=== PATIENT | male | born 1980 | race Caucasian/White ===

== ENCOUNTER 2016-09-06 19:24 | Emergency (ER) | payer SELFPAY ==
[~2016-09-06] VITALS: Ht 182.9 cm; Wt 99.8 kg
[~2016-09-06 19:24] MED LIST: SULF1TAB35 PO
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
[2016-09-06] MEDS ORDERED: meTOprolol TARTRATE 25 MG (LOPRESSOR) TABLET PO ONE (19:45)
[2016-09-06 19:52] VITALS: BP 0/0
--- OUTSIDE RECORDS SUMMARY | 2016-10-08 18:13 | XMS REPORT ---
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 Info Not Available Non Drug Allergy Problems Problem Type Condition Code Onset Dates Condition Status Assessment Cough R05 Active Problem Elevated blood sugar level 790.29 Active Problem IV drug abuse 305.90 Active Problem Elevated blood pressure I10 Active Assessment Costochondral chest pain R07.1 Active Assessment Allergic rhinitis J30.9 Active Problem Essential hypertension 401.9 Active Problem Allergic rhinitis, cause unspecified 477.9 Active Medications Medication Code System Code Instructions Start Date End Date Status Dosage Remeron [facility] [address]-89 15 MG Orally Once a day 1 tablet before bedtime in the evening Paxil [facility] [address]-36 20 MG Orally Once a day 1 tablet in the morning Oxcarbazepine [facility] [address]-11 600 MG Orally not defined Flonase Allergy Relief [facility] [address]-90 50 MCG/ACT Nasally Once a day May 13, 2015 1 spray in each nostril PredniSONE [facility] [address]-04 20 MG Orally Once a day May 13, 2015 May 21, 2015 4 tablets today, 2 tablets daily for 4 days, then 1 tablet daily for 3 days Tesleticia James [facility] [address]-24 100 MG Orally Three times a day May 13, 2015 May 23, 2015 1 capsule as needed Procedures Procedure Coding System Code Date Office Visit, Est Pt., Level 3 CPT-4 16286 May 13, 2015 Vital Signs Date/Time: May 13, 2015 Temperature 98.2 F Weight 275.6 lbs Height 72.5 in BMI 36.86 Index Blood Pressure Diastolic 90 mmHg Blood Pressure Systolic 128 mmHg Cardiac Monitoring Heart Rate 80 bpm Results No Known Results Summary Purpose [employer] Submission
--- OUTSIDE RECORDS SUMMARY | 2016-10-08 18:13 | XMS REPORT ---
Author ADITYA Riggs Organization [employer] Address Unknown Phone Unavailable Care Team Providers Care Rotary Soil Stabilizer Name Role Phone ADITYA ARAMBULA CP Unavailable Allergies, Adverse Reactions, Alerts Substance Reaction Event Type N.K.D.A. Info Not Available Non Drug Allergy Problems Problem Type Condition Code Onset Dates Condition Status Problem URI (upper respiratory infection) J06.9 Active Problem Chest wall pain R07.89 Active Problem HTN (hypertension) I10 Active Assessment HTN (hypertension) I10 Active Assessment Chest wall pain R07.89 Active Problem IV drug user F19.90 Active Assessment URI (upper respiratory infection) J06.9 Active Medications Medication Code System Code Instructions Start Date End Date Status Dosage Tessaljayro Chunes [facility] [address]-55 100 MG Orally Three times a day May 26, 2015 1 capsule as needed Flonase Allergy Relief [facility] [address]-59 50 MCG/ACT Nasally Once a day May 13, 2015 1 spray in each nostril Paxil [facility] [address]-95 20 MG Orally Once a day 1 tablet in the morning Toprol XL [facility] [address]-62 25 MG Orally Once a day May 26, 2015 1 tablet PredniSONE [facility] [address]-63 10 MG Orally 2 times a day May 26, 2015 May 31, 2015 as directed Oxcarbazepine [facility] [address]-37 600 MG Orally not defined Procedures Procedure Coding System Code Date Office Visit, Est Pt., Level 4 CPT-4 42933 May 26, 2015 Vital Signs Date/Time: May 26, 2015 Temperature 97.7 F Weight 277.5 lbs Height 72.5 in BMI 37.11 Index Blood Pressure Diastolic 94 mmHg Blood Pressure Systolic 116 mmHg Cardiac Monitoring Heart Rate 84 bpm Results No Known Results Summary Purpose [employer] Submission
--- OUTSIDE RECORDS SUMMARY | 2016-10-08 18:13 | XMS REPORT | Continuity of Care Document ---
Author Author [facility] Organization [facility] Address Unknown Phone Unavailable Allergies Active Description Code Type Severity Reaction Onset Reported/Identified Relationship to Patient Clinical Status Yes No Known Drug Allergies [id number] Drug Allergy Unknown N/ A 07/24/2010 Medications Problems Date Dx Coded Attending Type Code Diagnosis Diagnosed By 09/06/2016 MINA SILVA APRN Ot F13.10 SEDATIVE, HYPNOTIC OR ANXIOLYTIC ABUSE, 09/06/2016 MINA SILVA APRN Ot F15.20 OTHER STIMULANT DEPENDENCE, UNCOMPLICATE 09/06/2016 MINA SILVA APRN Ot Z53.29 PROC/TRTMT NOT CRD OUT BEC PT DECISION F 09/06/2016 MINA SILVA APRN Ot F99 MENTAL DISORDER, NOT OTHERWISE SPECIFIED 09/06/2016 MINA SILVA APRN Ot Z53.21 PROC/TRTMT NOT CRD OUT D/T PT LV BEF SEE 09/08/2016 DAVID HULL Ot F15.20 OTHER STIMULANT DEPENDENCE, UNCOMPLICATE 09/08/2016 DAVID HULL Ot F17.210 NICOTINE DEPENDENCE, CIGARETTES, UNCOMPL 09/08/2016 DAVID HULL Ot R45.851 SUICIDAL IDEATIONS Procedures Results Test Result Range Complete blood count (CBC) with automated white blood cell (WBC) differential - 09/07/16 12:59 Blood leukocytes automated count (number/volume) 8.5 10*3/ uL 4.3-11.0 Blood erythrocytes automated count (number/volume) 5.31 10*6 /uL 4.35-5.85 Venous blood hemoglobin measurement (mass/volume) 14.9 g/dL 13.3-17.7 Blood hematocrit (volume fraction) 45 % 40-54 Automated erythrocyte mean corpuscular volume 85 [foz_us] 80-99 Automated erythrocyte mean corpuscular hemoglobin (mass per erythrocyte) 28 pg 25-34 Automated erythrocyte mean corpuscular hemoglobin concentration measurement ( mass/volume) 33 g/dL 32-36 Automated erythrocyte distribution width ratio 14.5 % 10.0-14.5 Automated blood platelet count (count/volume) 351 10*3/uL 130-400 Automated blood platelet mean volume measurement 10.1 [foz_ us] 7.4-10.4 Automated blood neutrophils/100 leukocytes 63 % 42-75 Automated blood lymphocytes/100 leukocytes 23 % 12-44 Blood monocytes/100 leukocytes 9 % 0-12 Automated blood eosinophils/100 leukocytes 4 % 0-10 Automated blood basophils/100 leukocytes 1 % 0-10 Blood neutrophils automated count (number/volume) 5.3 10*3 1.8-7.8 Blood lymphocytes automated count (number/volume) 2.0 10*3 1.0-4.0 Blood monocytes automated count (number/volume) 0.7 10*3 0.0-1.0 Automated eosinophil count 0.4 10*3/uL 0.0-0.3 Automated blood basophil count (count/volume) 0.0 10*3/uL 0.0-0.1 Comprehensive metabolic panel - 09/07/16 12:59 Serum or plasma sodium measurement (moles/volume) 142 mmol/ L 135-145 Serum or plasma potassium measurement (moles/volume) 4.0 mmol/L 3.6-5.0 Serum or plasma chloride measurement (moles/volume) 105 mmol /L 98-107 Carbon dioxide 30 mmol/L 21-32 Serum or plasma anion gap determination (moles/volume) 7 mmol/L 5-14 Serum or plasma urea nitrogen measurement (mass/volume) 17 mg/dL 7-18 Serum or plasma creatinine measurement (mass/volume) 1.01 mg /dL 0.60-1.30 Serum or plasma urea nitrogen/creatinine mass ratio 17 NRG Serum or plasma creatinine measurement with calculation of estimated glomerular filtration rate > NRG Serum or plasma glucose measurement (mass/volume) 76 mg/dL 70-105 Serum or plasma calcium measurement (mass/volume) 9.2 mg/dL 8.5-10.1 Serum or plasma total bilirubin measurement (mass/volume) 0.5 mg/dL 0.1-1.0 Serum or plasma alkaline phosphatase measurement (enzymatic activity/volume) 84 U/L 40-136 Serum or plasma aspartate aminotransferase measurement (enzymatic activity/ volume) 30 U/L 5-34 Serum or plasma alanine aminotransferase measurement (enzymatic activity/volume ) 18 U/L 0-55 Serum or plasma protein measurement (mass/volume) 6.8 g/dL 6.4-8.2 Serum or plasma albumin measurement (mass/volume) 4.0 g/dL 3.2-4.5 Serum or plasma salicylates measurement (mass/volume) - 09/07/16 12:59 Serum or plasma salicylates measurement (mass/volume) < mg/ dL 5.0-20.0 Serum or plasma acetaminophen measurement (mass/volume) - 09/07/16 12:59 Serum or plasma acetaminophen measurement (mass/volume) < ug /mL 10-30 Serum or plasma ethanol measurement (mass/volume) - 09/07/16 12:59 Serum or plasma ethanol measurement (mass/volume) < mg/dL <10 Serum or plasma thyrotropin measurement by detection limit <=0.05 miu/l (units/ volume) - 09/07/16 12:59 Serum or plasma thyrotropin measurement by detection limit <=0.05 miu/l (units/ volume) 0.70 u[iU]/mL 0.35-4.94 Complete urinalysis with reflex to culture - 09/07/16 15:00 Urine color determination YELLOW NRG Urine clarity determination SLIGHTLY CLOUDY NRG Urine pH measurement by test strip 6 5- 9 Specific gravity of urine by test strip 1.025 1.016-1.022 Urine protein assay by test strip, semi-quantitative 2+ NEGATIVE Urine glucose detection by automated test strip NEGATIVE NEGATIVE Erythrocytes detection in urine sediment by light microscopy NEGATIVE NEGATIVE Urine ketones detection by automated test strip NEGATIVE NEGATIVE Urine nitrite detection by test strip NEGATIVE NEGATIVE Urine total bilirubin detection by test strip NEGATIVE NEGATIVE Urine urobilinogen measurement by automated test strip (mass/volume) NORMAL NORMAL Urine leukocyte esterase detection by dipstick 1+ NEGATIVE Automated urine sediment erythrocyte count by microscopy (number/high power field) NONE NRG Automated urine sediment leukocyte count by microscopy (number/high power field ) [HPF] NRG Bacteria detection in urine sediment by light microscopy NONE NRG Squamous epithelial cells detection in urine sediment by light microscopy 0-2 NRG Crystals detection in urine sediment by light microscopy NONE NRG Casts detection in urine sediment by light microscopy NONE NRG Mucus detection in urine sediment by light microscopy SMALL NRG Complete urinalysis with reflex to culture NO NRG Urine drug screening test - 09/07/16 15:00 Urine phencyclidine detection by screening method NEGATIVE NEGATIVE Urine benzodiazepines detection by screening method POSITIVE NEGATIVE Urine cocaine detection NEGATIVE NEGATIVE Urine amphetamines detection by screening method POSITIVE NEGATIVE Urine methamphetamine detection by screening method NEGATIVE NEGATIVE Urine cannabinoids detection by screening method POSITIVE NEGATIVE Urine opiates detection by screening method NEGATIVE NEGATIVE Urine barbiturates detection NEGATIVE NEGATIVE Screening urine tricyclic antidepressants detection NEGATIVE NEGATIVE Urine methadone detection by screening method NEGATIVE NEGATIVE Urine oxycodone detection NEGATIVE NEGATIVE Urine propoxyphene detection NEGATIVE NEGATIVE Encounters ACCT No. Visit Date/Time Discharge Status Pt. Type Provider Facility Loc./Unit Complaint [id number] 09/07/2016 12:05:00 2016 18:42:00 DIS Outpatient DAVID HULL [facility] ER PSYCH EVAL [id number] 09/06/2016 20:22:00 2016 20:33:00 DIS Emergency MINA SILVA APRN [facility] ER PSYCH EVAL [id number] 09/06/2016 19:26:00 2016 19:52:00 DIS Emergency MINA SILVA ADMINISTRATIVE OFFICE CLERK [facility] ER PSYCH EVAL [id number] 03/01/2014 11:25:00 2013 23:59:59 CLS Outpatient [id number] 05/07/2015 10:55:00 ACT Outpatient CARMELLA MOYA [facility] QUICK
--- OUTSIDE RECORDS SUMMARY | 2016-10-08 18:13 | XMS REPORT ---
Author ADITYA Riggs [facility] [employer] Address Unknown Phone Unavailable Care Team Providers Care Manager Front Name Role Phone ADITYA ARAMBULA CP Unavailable Allergies No Known Allergies Problems Problem Type Condition Code Onset Dates Condition Status Problem Cellulitis L03.90 Active Problem HTN (hypertension) I10 Active Problem Depression F32.9 Active Problem IV drug user F19.90 Active Problem URI (upper respiratory infection) J06.9 Active Problem Chest wall pain R07.89 Active Medications Medication Code System Code Instructions Start Date End Date Status Dosage Toprol XL [facility] 22306300622 25 MG Orally Once a day 1 tablet Paxil [facility] [address]-38 20 mg Orally Once a day 1 tablet in the morning--MUST HAVE APPOINTMENT FOR FURTHER REFILLS Results No Known Results Summary Purpose [employer] Submission
--- OUTSIDE RECORDS SUMMARY | 2016-10-08 18:13 | XMS REPORT ---
Author Author ROSETTA ORTIZ Organization [employer] Address Unknown Phone Unavailable Care Team Providers Care Environmental Sustainability Manager Name Role Phone ROSETTA ORTIZ CP Unavailable Allergies, Adverse Reactions, Alerts Substance Reaction Event Type N.K.D.A. Info Not Available Non Drug Allergy Problems Problem Type Condition Code Onset Dates Condition Status Assessment Elevated blood pressure I10 Active Problem Elevated blood sugar level 790.29 Active Problem IV drug abuse 305.90 Active Problem Elevated blood pressure I10 Active Assessment Acute bronchitis, unspecified J20.9 Active Assessment Tobacco abuse counseling Z71.6 Active Problem Essential hypertension 401.9 Active Problem Allergic rhinitis, cause unspecified 477.9 Active Medications Medication Code System Code Instructions Start Date End Date Status Dosage Paxil [facility] [address]-88 20 MG Orally Once a day 1 tablet in the morning Oxcarbazepine [facility] [address]-02 600 MG Orally not defined Remeron [facility] [address]-59 15 MG Orally Once a day 1 tablet before bedtime in the evening Procedures Procedure Coding System Code Date MEASURE BLOOD OXYGEN LEVEL CPT-4 84199 May 05, 2015 Office Visit, Est Pt., Level 4 CPT-4 41184 May 05, 2015 NEB/MDI RX INITIAL CPT-4 88023 May 05, 2015 THER/PROPH/DIAG INJ, SC/IM CPT-4 42842 May 05, 2015 SOLUMEDROL (UP TO 125 MG) CPT-4 J2930 May 05, 2015 Vital Signs Date/Time: May 05, 2015 Temperature 98.6 F Weight 279.0 lbs Height 72.5 in Oximetry 97 % Blood Pressure Diastolic 104 mmHg Blood Pressure Systolic 140 mmHg Cardiac Monitoring Heart Rate 72 bpm BMI 37.32 Index Results No Known Results Summary Purpose [employer] Submission
== END 2016-09-06 19:52 | disposition left against medical advice (07) ==
LOC: EDUNIT# 19:24 → ER 19:26
DX: F15.20 Other stimulant dependence, uncomplicated (principal); F13.10 Sedative, hypnotic or anxiolytic abuse, uncomplicated; Z53.29 Procedure and treatment not carried out because of patient's decision for other reasons
CPT/HCPCS: 99283

== ENCOUNTER 2016-09-06 20:21 | Emergency (ER) | payer SELFPAY ==
--- OUTSIDE RECORDS SUMMARY | 2016-10-08 18:22 | XMS REPORT | Continuity of Care Document ---
Author Author [facility] Organization [facility] Address Unknown Phone Unavailable Allergies Active Description Code Type Severity Reaction Onset Reported/Identified Relationship to Patient Clinical Status Yes No Known Drug Allergies [id number] Drug Allergy Unknown N/ A 07/24/2010 Medications [...] Status Pt. Type Provider Facility Loc./Unit Complaint [id number] 09/07/2016 12:05:00 2016 18:42:00 DIS Outpatient DAVID HULL [facility] ER PSYCH EVAL [id number] 09/06/2016 20:22:00 2016 20:33:00 DIS Emergency MINA SILVA APRN [facility] ER PSYCH EVAL [id number] 09/06/2016 19:26:00 2016 19:52:00 DIS Emergency MINA SILVA FINAL CLEANER [facility] ER PSYCH EVAL [id number] 03/01/2014 11:25:00 2013 23:59:59 CLS Outpatient [id number] 05/07/2015 10:55:00 ACT Outpatient CARMELLA MOYA [facility] QUICK
== END 2016-09-06 20:33 | disposition left against medical advice (07) ==
LOC: EDUNIT# 20:21 → ER 20:22
DX: F99 Mental disorder, not otherwise specified (principal); Z53.21 Procedure and treatment not carried out due to patient leaving prior to being seen by health care provider

== ENCOUNTER 2016-09-07 12:03 | Emergency (ER) | payer SELFPAY ==
[~2016-09-07] VITALS: Ht 182.9 cm; Wt 102.1 kg
[2016-09-07 13:06] LABS: BASOPHILS % (AUTO) 1 % (0-10); EOSINOPHILS # (AUTO) 0.4 10^3/uL (0.0-0.3); EOSINOPHILS % (AUTO) 4 % (0-10); LYMPHOCYTES % (AUTO) 23 % (12-44); MEAN CORPUSCULAR HEMOGLOBIN 28 PG (25-34); MEAN CORPUSCULAR HGB CONC 33 G/DL (32-36); MEAN CORPUSCULAR VOLUME 85 FL (80-99); MEAN PLATELET VOLUME 10.1 FL (7.4-10.4); MONOCYTES # (AUTO) 0.7 X 10^3 (0.0-1.0); MONOCYTES % (AUTO) 9 % (0-12); NEUTROPHILS # (AUTO) 5.3 X 10^3 (1.8-7.8); NEUTROPHILS % (AUTO) 63 % (42-75); PLATELET COUNT 351 10^3/uL (130-400); RED BLOOD COUNT 5.31 10^6/uL (4.35-5.85); RED CELL DISTRIBUTION WIDTH 14.5 % (10.0-14.5); WHITE BLOOD COUNT 8.5 10^3/uL (4.3-11.0)
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
[2016-09-07 13:29] LABS: ALANINE AMINOTRANSFERASE 18 U/L (0-55); ASPARTATE AMINO TRANSFERASE 30 U/L (5-34); BILIRUBIN,TOTAL 0.5 MG/DL (0.1-1.0); BLOOD UREA NITROGEN 17 MG/DL (7-18); BUN/CREATININE RATIO 17; CALCIUM 9.2 MG/DL (8.5-10.1); CARBON DIOXIDE 30 MMOL/L (21-32); CREATININE SERUM 1.01 MG/DL (0.60-1.30); GFR ESTIMATED > 60; GLUCOSE 76 MG/DL (70-105); SALICYLATE < 5.0 MG/DL (5.0-20.0); TOTAL PROTEIN 6.8 G/DL (6.4-8.2)
[2016-09-07 13:32] LABS: ALCOHOL < 10 MG/DL (<10)
[2016-09-07 13:46] LABS: ANION GAP 7 MMOL/L (5-14); CHLORIDE 105 MMOL/L (98-107); SODIUM 142 MMOL/L (135-145)
[2016-09-07 13:47] LABS: ACETAMINOPHEN < 10 UG/ML (10-30)
[2016-09-07 15:17] LABS: BILIRUBIN,URINE NEGATIVE (NEGATIVE); KETONES,URINE NEGATIVE (NEGATIVE); LEUKOCYTE ESTERASE ,URINE 1+ (NEGATIVE); NITRITE,URINE NEGATIVE (NEGATIVE); PH,URINE 6 (5-9); PROTEIN,URINE 2+ (NEGATIVE); UROBILINOGEN,URINE NORMAL (NORMAL)
[2016-09-07 15:24] LABS: SQUAMOUS EPITHELIAL CELL,UR 0-2 /HPF; WBC,URINE 0-2 /HPF
[2016-09-07 18:43] VITALS: BP 132/98
--- OUTSIDE RECORDS SUMMARY | 2016-10-08 21:24 | XMS REPORT | Continuity of Care Document ---
Author Author [facility] Organization [facility] Address Unknown Phone Unavailable Allergies Active Description Code Type Severity Reaction Onset Reported/Identified Relationship to Patient Clinical Status Yes No Known Drug Allergies [id number] Drug Allergy Unknown N/ A 07/24/2010 Medications [...] Status Pt. 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
== END 2016-09-07 18:42 ==
LOC: EDUNIT# 12:03 → ER 12:05
DX: R45.851 Suicidal ideations (principal); F15.20 Other stimulant dependence, uncomplicated; F17.210 Nicotine dependence, cigarettes, uncomplicated
CPT/HCPCS: 36415; 80053; 80306; 80320; 80329; 81000; 84443; 85025; 93005

== ENCOUNTER 2017-05-20 20:26 | Emergency (ER) | payer SELFPAY ==
[~2017-05-20] VITALS: Ht 182.9 cm; Wt 113.4 kg
--- OUTSIDE RECORDS SUMMARY | 2017-05-20 20:34 | XMS REPORT | Continuity of Care Document ---
Author Author [facility] Organization [facility] Address Unknown Phone Unavailable Allergies Active Description Code Type Severity Reaction Onset Reported/Identified Relationship to Patient Clinical Status Yes No Known Drug Allergies [id number] Drug Allergy Unknown N/A 07/24/2010 Medications There is no data. Problems Date Dx Coded Attending Type Code Diagnosis Diagnosed By 07/24/2010 Ot 682.3 CELLULITIS OF ARM 09/06/2016 MINA SILVA APRN Ot F13.10 SEDATIVE, HYPNOTIC OR ANXIOLYTIC ABUSE, 09/06/2016 MINA SILVA APRN Ot F15.20 OTHER STIMULANT DEPENDENCE, UNCOMPLICATE 09/06/2016 MINA SILVA APRN Ot Z53.29 PROC/TRTMT NOT CRD OUT BEC PT DECISION F 09/06/2016 MINA SILVA SENIOR LANDSCAPE ARCHITECT Ot F99 MENTAL DISORDER, NOT OTHERWISE SPECIFIED 09/06/2016 MINA SILVA APRN Ot Z53.21 PROC/TRTMT NOT CRD OUT D/T PT LV BEF SEE 09/07/2016 DAVID HULL Ot F15.20 OTHER STIMULANT DEPENDENCE, UNCOMPLICATE 09/07/2016 DAVID HULL Ot F17.210 NICOTINE DEPENDENCE, CIGARETTES, UNCOMPL 09/07/2016 DAVID HULL Ot R45.851 SUICIDAL IDEATIONS 09/08/2016 DAVID HULL Ot F15.20 OTHER STIMULANT DEPENDENCE, UNCOMPLICATE 09/08/2016 DAVID HULL Ot F17.210 NICOTINE DEPENDENCE, CIGARETTES, UNCOMPL 09/08/2016 DAVID HULL Ot R45.851 SUICIDAL IDEATIONS 04/05/2017 JANAY PIKE CUATE Florentin Ot F12.90 CANNABIS USE, UNSPECIFIED, UNCOMPLICATED 04/05/2017 JANAY PIKE CUATE K Ot F15.90 OTHER STIMULANT USE, UNSPECIFIED, UNCOMP 04/05/2017 JANAY PIKE CUATE K Ot F17.210 NICOTINE DEPENDENCE, CIGARETTES, UNCOMPL 04/05/2017 JANAY PIKE CUATE K Ot F32.9 MAJOR DEPRESSIVE DISORDER, SINGLE EPISOD 04/05/2017 JANAY DO CUATE K Ot I10 ESSENTIAL (PRIMARY) HYPERTENSION 04/05/2017 JANAY KAYLA PIKEA K Ot R44.3 HALLUCINATIONS, UNSPECIFIED 04/06/2017 JANAY KAYLA PIKEA K Ot F03.90 UNSPECIFIED DEMENTIA WITHOUT BEHAVIORAL 04/06/2017 JANAY , CUATE K Ot F12.90 CANNABIS USE, UNSPECIFIED, UNCOMPLICATED 04/06/2017 JANAY , CUATE K Ot F15.90 OTHER STIMULANT USE, UNSPECIFIED, UNCOMP 04/06/2017 JANAY , CUATE K Ot F17.210 NICOTINE DEPENDENCE, CIGARETTES, UNCOMPL 04/06/2017 JANAY CUATE PIKE K Ot F20.9 SCHIZOPHRENIA, UNSPECIFIED 04/06/2017 JANAY KAYLA PIKEA K Ot F29 UNSP PSYCHOSIS NOT DUE TO A SUBSTANCE OR 04/06/2017 CUATE GUSTAFSON DO K Ot F32.9 MAJOR DEPRESSIVE DISORDER, SINGLE EPISOD 04/06/2017 JANAY KAYLA PIKEA K Ot I10 ESSENTIAL (PRIMARY) HYPERTENSION 04/11/2017 JANAY , CUATE K Ot F12.90 CANNABIS USE, UNSPECIFIED, UNCOMPLICATED 04/11/2017 JANAY , CUATE K Ot F15.90 OTHER STIMULANT USE, UNSPECIFIED, UNCOMP 04/11/2017 JANAY , CUATE K Ot F17.210 NICOTINE DEPENDENCE, CIGARETTES, UNCOMPL 04/11/2017 JANAY CUATE PIKE K Ot F32.9 MAJOR DEPRESSIVE DISORDER, SINGLE EPISOD 04/11/2017 JANAY KAYLA PIKEA K Ot I10 ESSENTIAL (PRIMARY) HYPERTENSION 04/11/2017 JANAY CUATE PIKE K Ot R44.3 HALLUCINATIONS, UNSPECIFIED Procedures There is no data. Results Test Result Range Complete blood count (CBC) with automated white blood cell (WBC) differential - 09/07/16 12:59 Blood leukocytes automated count (number/volume) 8.5 10*3/uL 4.3-11.0 Blood erythrocytes automated count (number/volume) 5.31 10*6/uL 4.35-5.85 Venous blood hemoglobin measurement (mass/volume) 14.9 [...] Automated blood platelet mean volume measurement 10.1 [foz_us] 7.4-10.4 Automated blood neutrophils/100 leukocytes 63 % [...] Serum or plasma sodium measurement (moles/volume) 142 mmol/L 135-145 Serum or plasma potassium measurement (moles/volume) 4.0 mmol/L 3.6-5.0 Serum or plasma chloride measurement (moles/volume) 105 mmol/L 98-107 Carbon dioxide 30 mmol/L 21-32 Serum or plasma anion gap determination (moles/volume) 7 mmol/L 5-14 Serum or plasma urea nitrogen measurement (mass/volume) 17 mg/dL 7-18 Serum or plasma creatinine measurement (mass/volume) 1.01 mg/dL 0.60-1.30 Serum or plasma urea nitrogen/creatinine mass [...] Serum or plasma salicylates measurement (mass/volume) < mg/dL 5.0-20.0 Serum or plasma acetaminophen measurement (mass/volume) - 09/07/16 12:59 Serum or plasma acetaminophen measurement (mass/volume) < ug/mL 10-30 Serum or plasma ethanol measurement (mass/volume) [...] Urine pH measurement by test strip 6 5-9 Specific gravity of urine by test strip 1.025 1.016- 1.022 Urine protein assay by test strip, semi-quantitative [...] NEGATIVE NEGATIVE Urine propoxyphene detection NEGATIVE NEGATIVE Complete blood count (CBC) with automated white blood cell (WBC) differential - 04/05/17 23:40 Blood leukocytes automated count (number/volume) 15.2 10*3/uL 4.3-11.0 Blood erythrocytes automated count (number/volume) 5.23 10*6/uL 4.35-5.85 Venous blood hemoglobin measurement (mass/volume) 14.9 g/dL 13.3-17.7 Blood hematocrit (volume fraction) 43 % 40-54 Automated erythrocyte mean corpuscular volume 83 [foz_us] 80-99 Automated erythrocyte mean corpuscular hemoglobin (mass per erythrocyte) 29 pg 25-34 Automated erythrocyte mean corpuscular hemoglobin concentration measurement ( mass/volume) 34 g/dL 32-36 Automated erythrocyte distribution width ratio 13.5 % 10.0-14.5 Automated blood platelet count (count/volume) 325 10*3/uL 130-400 Automated blood platelet mean volume measurement 10.4 [foz_us] 7.4-10.4 Automated blood neutrophils/100 leukocytes 70 % 42-75 Automated blood lymphocytes/100 leukocytes 17 % 12-44 Blood monocytes/100 leukocytes 11 % 0-12 Automated blood eosinophils/100 leukocytes 2 % 0-10 Automated blood basophils/100 leukocytes 0 % 0-10 Blood neutrophils automated count (number/volume) 10.7 10*3 1.8-7.8 Blood lymphocytes automated count (number/volume) 2.5 10*3 1.0-4.0 Blood monocytes automated count (number/volume) 1.7 10*3 0.0-1.0 Automated eosinophil count 0.3 10*3/uL 0.0-0.3 Automated blood basophil count (count/volume) 0.0 10*3/uL 0.0-0.1 Comprehensive metabolic panel - 04/05/17 23:40 Serum or plasma sodium measurement (moles/volume) 139 mmol/L 135-145 Serum or plasma potassium measurement (moles/volume) 3.8 mmol/L 3.6-5.0 Serum or plasma chloride measurement (moles/volume) 105 mmol/L 98-107 Carbon dioxide 19 mmol/L 21-32 Serum or plasma anion gap determination (moles/volume) 15 mmol/L 5-14 Serum or plasma urea nitrogen measurement (mass/volume) 18 mg/dL 7-18 Serum or plasma creatinine measurement (mass/volume) 1.07 mg/dL 0.60-1.30 Serum or plasma urea nitrogen/creatinine mass ratio 17 NRG Serum or plasma creatinine measurement with calculation of estimated glomerular filtration rate > NRG Serum or plasma glucose measurement (mass/volume) 102 mg/dL 70-105 Serum or plasma calcium measurement (mass/volume) 9.4 mg/dL 8.5-10.1 Serum or plasma total bilirubin measurement (mass/volume) 0.5 mg/dL 0.1-1.0 Serum or plasma alkaline phosphatase measurement (enzymatic activity/volume) 81 U/L 40-136 Serum or plasma aspartate aminotransferase measurement (enzymatic activity/ volume) 30 U/L 5-34 Serum or plasma alanine aminotransferase measurement (enzymatic activity/volume ) 28 U/L 0-55 Serum or plasma protein measurement (mass/volume) 7.7 g/dL 6.4-8.2 Serum or plasma albumin measurement (mass/volume) 4.5 g/dL 3.2-4.5 Serum or plasma thyrotropin measurement by detection limit <=0.05 miu/l (units/ volume) - 04/05/17 23:40 Serum or plasma thyrotropin measurement by detection limit <=0.05 miu/l (units/ volume) 1.88 u[iU]/mL 0.35-4.94 Serum or plasma salicylates measurement (mass/volume) - 04/05/17 23:40 Serum or plasma salicylates measurement (mass/volume) < mg/dL 5.0-20.0 Serum or plasma acetaminophen measurement (mass/volume) - 04/05/17 23:40 Serum or plasma acetaminophen measurement (mass/volume) < ug/mL 10-30 Serum or plasma ethanol measurement (mass/volume) - 04/05/17 23:40 Serum or plasma ethanol measurement (mass/volume) < mg/dL <10 Encounters ACCT No. Visit Date/Time Discharge Status Pt. Type Provider Facility Loc./Unit Complaint [id number] 04/05/2017 23:29:00 04/06/2017 01:07:00 DIS Emergency CUATE GUSTAFSON DO [facility] ER PSYCHOSIS [id number] 04/05/2017 22:24:00 04/05/2017 23:06:00 DIS Emergency JANAY CUATE PIKE [facility] ER HALLUCINATIONS [id number] 09/07/2016 12:05:00 09/07/2016 18:42:00 DIS Emergency DAVID HULL [facility] ER PSYCH EVAL [id number] 09/06/2016 20:22:00 09/06/2016 20:33:00 DIS Emergency MINA SILVA SENIOR LANDSCAPE ARCHITECT [facility] ER PSYCH EVAL [id number] 09/06/2016 19:26:00 09/06/2016 19:52:00 DIS Emergency MINA SILVA SENIOR LANDSCAPE ARCHITECT [facility] ER PSYCH EVAL [id number] 05/07/2015 10:55:00 05/07/2015 23:59:59 CLS Outpatient VAN CARMELLA WILKINS [facility] QUICK [id number] 03/01/2014 11:25:00 03/01/2014 23:59:59 CLS Outpatient MARAH JANET Laura SENIOR LANDSCAPE ARCHITECT [facility] QUICK POSSIBLE SPIDER BITE [id number] 05/17/2017 02:50:00 Document Registration [id number] 05/17/2017 02:50:00 Document Registration [id number] 05/17/2017 02:50:00 Document Registration [id number] 05/17/2017 02:50:00 Document Registration [id number] 07/24/2010 10:50:00 Document Registration
[2017-05-20] MEDS ORDERED: diphenhydrAMINE 50 MG/ML INJ (BENADRYL) IM ONE (20:45)
[2017-05-20] MEDS ORDERED: LORazepam INJ 2 MG/ML (ATIVAN) VIAL IM ONE ×2 (20:45)
[2017-05-20] MEDS ORDERED: HALOPERIDOL 5 MG/ML (HALDOL) AMP IM ONE (20:45)
[2017-05-20] MEDS ORDERED: ZIPRASIDONE 20 MG INJ (GEODON) VIAL IM ONE ×2 (20:58→21:00)
[2017-05-20 21:21] VITALS: BP 151/98
[2017-05-20 21:36] LABS: BASOPHILS % (AUTO) 0 % (0-10); EOSINOPHILS # (AUTO) 0.3 10^3/uL (0.0-0.3); EOSINOPHILS % (AUTO) 3 % (0-10); LYMPHOCYTES # (AUTO) 1.7 X 10^3 (1.0-4.0); LYMPHOCYTES % (AUTO) 18 % (12-44); MEAN CORPUSCULAR HEMOGLOBIN 28 PG (25-34); MEAN CORPUSCULAR HGB CONC 34 G/DL (32-36); MEAN CORPUSCULAR VOLUME 82 FL (80-99); MEAN PLATELET VOLUME 10.4 FL (7.4-10.4); MONOCYTES # (AUTO) 0.9 X 10^3 (0.0-1.0); MONOCYTES % (AUTO) 9 % (0-12); NEUTROPHILS # (AUTO) 6.3 X 10^3 (1.8-7.8); NEUTROPHILS % (AUTO) 69 % (42-75); PLATELET COUNT 310 10^3/uL (130-400); RED BLOOD COUNT 4.74 10^6/uL (4.35-5.85); RED CELL DISTRIBUTION WIDTH 13.3 % (10.0-14.5); WHITE BLOOD COUNT 9.1 10^3/uL (4.3-11.0)
[2017-05-20 21:44] LABS: BILIRUBIN,URINE NEGATIVE (NEGATIVE); KETONES,URINE NEGATIVE (NEGATIVE); LEUKOCYTE ESTERASE ,URINE 1+ (NEGATIVE); NITRITE,URINE NEGATIVE (NEGATIVE); PH,URINE 6 (5-9); PROTEIN,URINE 1+ (NEGATIVE); UROBILINOGEN,URINE NORMAL (NORMAL)
[2017-05-20 21:45] VITALS: BP 157/115
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
[2017-05-20 21:54] LABS: SQUAMOUS EPITHELIAL CELL,UR 0-2 /HPF
[2017-05-20 22:00] LABS: ALANINE AMINOTRANSFERASE 17 U/L (0-55); ALBUMIN 4.1 GM/DL (3.2-4.5); ALCOHOL < 10 MG/DL (<10); ANION GAP 13 MMOL/L (5-14); ASPARTATE AMINO TRANSFERASE 27 U/L (5-34); BILIRUBIN,TOTAL 0.4 MG/DL (0.1-1.0); BLOOD UREA NITROGEN 15 MG/DL (7-18); BUN/CREATININE RATIO 13; CALCIUM 9.4 MG/DL (8.5-10.1); CARBON DIOXIDE 20 MMOL/L (21-32); CHLORIDE 109 MMOL/L (98-107); GFR ESTIMATED > 60; GLUCOSE 114 MG/DL (70-105); POTASSIUM 2.9 MMOL/L (3.6-5.0); SALICYLATE < 5.0 MG/DL (5.0-20.0); SODIUM 142 MMOL/L (135-145); TOTAL PROTEIN 7.1 GM/DL (6.4-8.2)
[2017-05-20 22:03] LABS: ACETAMINOPHEN < 10 UG/ML (10-30)
[2017-05-20 22:11] VITALS: BP 146/83
[2017-05-20 22:41] VITALS: BP 142/78
[2017-05-20 23:00] VITALS: BP 125/76
[2017-05-20 23:30] VITALS: BP 123/70
[2017-05-21] VITALS: BP 116/73
[2017-05-21 00:30] VITALS: BP 114/70
[2017-05-21 01:00] VITALS: BP 125/80
[2017-05-21 01:30] VITALS: BP 109/86
[2017-05-21 02:00] VITALS: BP 125/90
[2017-05-21 02:25] VITALS: BP 125/90
== END 2017-05-21 02:25 | disposition home or self-care (01) ==
LOC: EDUNIT# 20:26 → ER 20:29
DX: F15.259 Other stimulant dependence with stimulant-induced psychotic disorder, unspecified (principal); F41.9 Anxiety disorder, unspecified; F31.9 Bipolar disorder, unspecified; F20.9 Schizophrenia, unspecified; I10 Essential (primary) hypertension; F13.90 Sedative, hypnotic, or anxiolytic use, unspecified, uncomplicated; F17.210 Nicotine dependence, cigarettes, uncomplicated
CPT/HCPCS: 36415; 80053; 80306; 80320; 80329; 81000; 84443; 85025; 93005; 93041

== ENCOUNTER 2017-11-12 20:40 | Emergency (ER) | payer SELFPAY ==
[2017-11-12] MEDS ORDERED: NS IV 1000 ML 1,000 ML IV SCH (20:51)
[2017-11-12] MEDS ORDERED: LACTATED RINGERS 1,000 ML IV ONE (20:51)
[2017-11-12 21:05] LABS: BASOPHILS % (AUTO) 0 % (0-10); EOSINOPHILS # (AUTO) 0.2 10^3/uL (0.0-0.3); EOSINOPHILS % (AUTO) 2 % (0-10); HEMATOCRIT 42 % (40-54); HEMOGLOBIN 15.4 G/DL (13.3-17.7); LYMPHOCYTES # (AUTO) 1.8 X 10^3 (1.0-4.0); LYMPHOCYTES % (AUTO) 15 % (12-44); MEAN CORPUSCULAR HEMOGLOBIN 30 PG (25-34); MEAN CORPUSCULAR HGB CONC 37 G/DL (32-36); MEAN CORPUSCULAR VOLUME 81 FL (80-99); MEAN PLATELET VOLUME 11.2 FL (7.4-10.4); MONOCYTES # (AUTO) 1.3 X 10^3 (0.0-1.0); MONOCYTES % (AUTO) 11 % (0-12); NEUTROPHILS # (AUTO) 8.8 X 10^3 (1.8-7.8); NEUTROPHILS % (AUTO) 72 % (42-75); PLATELET COUNT 326 10^3/uL (130-400); RED BLOOD COUNT 5.16 10^6/uL (4.35-5.85); RED CELL DISTRIBUTION WIDTH 13.4 % (10.0-14.5); WHITE BLOOD COUNT 12.2 10^3/uL (4.3-11.0)
[2017-11-12 21:29] LABS: ALANINE AMINOTRANSFERASE 31 U/L (0-55); ALBUMIN 4.8 GM/DL (3.2-4.5); ALKALINE PHOSPHATASE 90 U/L (40-136); BILIRUBIN,TOTAL 0.9 MG/DL (0.1-1.0); BUN/CREATININE RATIO 10; CALCIUM 10.3 MG/DL (8.5-10.1); CARBON DIOXIDE 15 MMOL/L (21-32); CHLORIDE 111 MMOL/L (98-107); CREATININE SERUM 2.13 MG/DL (0.60-1.30); GFR ESTIMATED 35; GLUCOSE 124 MG/DL (70-105); POTASSIUM 3.6 MMOL/L (3.6-5.0); SALICYLATE < 5.0 MG/DL (5.0-20.0); SODIUM 145 MMOL/L (135-145); TOTAL PROTEIN 8.1 GM/DL (6.4-8.2)
[2017-11-12 21:31] LABS: ACETAMINOPHEN < 10 UG/ML (10-30)
--- OUTSIDE RECORDS SUMMARY | 2017-11-12 21:31 | XMS REPORT ---
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 Active 293752753 Problem Chest wall pain R07.89 Active 140570903 Problem HTN (hypertension) I10 Active 72965786 Problem Depression F32.9 Active 55699859 Problem Cellulitis L03.90 Active 404019423 ALLERGIES Substance Reaction Event Type Date Status Sulfamethoxazole-TMP DS Unknown Drug Allergy Dec, Active ENCOUNTERS Encounter Location Date Diagnosis [facility] [address] [address] Feb, Poison leydi L23.7 [facility] [address] [address] Dec, Depression F32.9 ; Methamphetamine dependence, 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 ; HTN (hypertension) I10 and Cellulitis L03.90 [facility] [id number] [place] [phone] Dec, [facility] [address] [address] Dec, Abscess of arm, left L02.414 [facility] [address] [place] [address] Dec, [facility] [address] [address] Dec, [facility] [id number] [address] October, [facility] [id number] [place] [address] October, [facility] [id number] [place] [address] Sep, HTN (hypertension) I10 [facility] [id number] [place] [address] Sep, [facility] [address] [place] [address] Sep, Methamphetamine addiction F15.20 [facility] [id number] [place] [address] Sep, IV drug user F19.90 ; Depression F32.9 ; Methamphetamine addiction F15.20 and Suicide ideation R45.851 [facility] [id number] [place] [address] Sep, Suicidal ideation R45.851 ; IV drug user F19.90 ; Methamphetamine addiction F15.20 and Methamphetamine dependence, 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 [facility] [id number] [place] [address] Aug, Cellulitis L03.90 ; IV drug user F19.90 and HTN ( hypertension) I10 [facility] [id number] [place] [address] Aug, Cellulitis L03.90 [facility] [id number] [place] [address] Aug, IV drug user F19.90 ; Cellulitis L03.90 and HTN ( hypertension) I10 [facility] [id number] [place] [address] Dec, [facility] [id number] [place] [address] Nov, [place] [id number] [place] [address] Jul, HTN (hypertension) I10 ; Depression F32.9 and Cellulitis L03.90 [place] [id number] [place] [address] May, URI (upper respiratory infection) J06.9 ; HTN (hypertension ) I10 and Chest wall pain R07.89 [place] [address] [address] May, Costochondral chest pain R07.1 ; Allergic rhinitis J30.9 and Cough R[address] [address] May, Acute bronchitis, unspecified J20.9 ; Tobacco abuse counseling Z71.6 and Elevated blood pressure I10 [place] [address] [address] Jan, [place] [address] [address] Jan, Elevated blood sugar level 790.29 [place] [address] [address] Jan, IV drug abuse 305.90 ; Essential hypertension 401.9 and Anxiety 300.00 [place] [address] [address] Sep, [place] [address] [address] Sep, [place] [address] [address] Mar, [place] [address] [address] Mar, [place] [id number] [place] [address] Jul, IMMUNIZATIONS No Known Immunizations SOCIAL HISTORY Never Assessed REASON FOR VISIT Depression/drug screen. Pt states that he has been off meth for 2 weeks. Needing some anti-depressants to help with transition. Florentin Price, RMA, Pt had just urinated before coming to [facility] so is drinking fluids now. PLAN OF CARE Activity Details Follow Up 4 Weeks Reason:depression, drug screen VITAL SIGNS Height 72.5 in 2016-12-21 Weight 246 lbs 2016-12-21 Temperature 98.4 degrees Fahrenheit 2016-12-21 Heart Rate 88 bpm 2016-12-21 Respiratory Rate 16 2016-12-21 BMI 32.90 kg/m2 2016-12-21 Blood pressure systolic 132 mmHg 2016-12-21 Blood pressure diastolic 84 mmHg 2016-12-21 MEDICATIONS Medication Instructions Dosage Frequency Start Date End Date Duration Status Bactrim DS 800-160 MG Orally Twice a day, voucher 1 tablet Dec, Dec, 10 day(s) Active Paxil 20 mg Orally Once a day 1 tablet in the morning 24h Dec, 30 day(s) Active Toprol XL 50 MG Orally Once a day 1 tablet 24h 30 days Active RESULTS No Results PROCEDURES Procedure Date Ordered Result Body Site DRUG TEST PRSMV DIR OPT OBS December 21, 2016 INSTRUCTIONS MEDICATIONS ADMINISTERED No Known Medications MEDICAL (GENERAL) HISTORY Type Description Date Medical History hypertension Medical History drug abuse--IVDU meth--last used 08/24/2016. Completed 28 day rehab at [facility] on 12-30-14 Surgical History orthopedic surgery-Right ankle fx with hardware 1993 Surgical History hypospadias repair Hospitalization History Surgery
--- OUTSIDE RECORDS SUMMARY | 2017-11-12 21:32 | XMS REPORT | Continuity of Care Document ---
Author Author [facility] Organization [facility] Address Unknown Phone Unavailable Allergies Active Description Code Type Severity Reaction Onset Reported/Identified Relationship to Patient Clinical Status Yes No Known Drug Allergies [id number] Drug Allergy Unknown N/A 07/24/2010 Medications There is no data. Problems Date Dx Coded Attending Type Code Diagnosis Diagnosed By 07/24/2010 Ot 682.3 CELLULITIS OF ARM 03/18/2013 SANTO JULIAN APRN 477.9 RHINITIS 09/06/2016 MINA SILVA APRN Ot F13.10 SEDATIVE, [...] DAVID HULL Ot R45.851 SUICIDAL IDEATIONS 04/05/2017 CUATE GUSTAFSON DO Ot F12.90 CANNABIS USE, UNSPECIFIED, UNCOMPLICATED 04/05/2017 CUATE GUSTAFSON DO Ot F15.90 OTHER STIMULANT USE, UNSPECIFIED, UNCOMP 04/05/2017 JANAY DO, CUATE K Ot F17.210 NICOTINE DEPENDENCE, CIGARETTES, UNCOMPL 04/05/2017 JANAY DO, CUATE K Ot F32.9 MAJOR DEPRESSIVE DISORDER, SINGLE EPISOD 04/05/2017 JANAY DO, CUATE K Ot I10 ESSENTIAL (PRIMARY) HYPERTENSION 04/05/2017 JANAY DO, CUATE K Ot R44.3 HALLUCINATIONS, UNSPECIFIED 04/06/2017 JANAY DO, CUATE K Ot F03.90 UNSPECIFIED DEMENTIA WITHOUT BEHAVIORAL 04/06/2017 JANAY DO, CUATE K Ot F12.90 CANNABIS USE, UNSPECIFIED, UNCOMPLICATED 04/06/2017 JANAY DO, CUATE K Ot F15.90 OTHER STIMULANT USE, UNSPECIFIED, UNCOMP 04/06/2017 JANAY DO, CUATE K Ot F17.210 NICOTINE DEPENDENCE, CIGARETTES, UNCOMPL 04/06/2017 JANAY DO, CUATE K Ot F20.9 SCHIZOPHRENIA, UNSPECIFIED 04/06/2017 JANAY DO, CUATE K Ot F29 UNSP PSYCHOSIS NOT DUE TO A SUBSTANCE OR 04/06/2017 JANAY DO, CUATE K Ot F32.9 MAJOR DEPRESSIVE DISORDER, SINGLE EPISOD 04/06/2017 JANAY DO, CUATE K Ot I10 ESSENTIAL (PRIMARY) HYPERTENSION 04/11/2017 JANAY DO, CUATE K Ot F12.90 CANNABIS USE, UNSPECIFIED, UNCOMPLICATED 04/11/2017 JANAY DO, CUATE K Ot F15.90 OTHER STIMULANT USE, UNSPECIFIED, UNCOMP 04/11/2017 JANAY DO, CUATE K Ot F17.210 NICOTINE DEPENDENCE, CIGARETTES, UNCOMPL 04/11/2017 JANAY DO, CUATE K Ot F32.9 MAJOR DEPRESSIVE DISORDER, SINGLE EPISOD 04/11/2017 JANAY DO, CUATE K Ot I10 ESSENTIAL (PRIMARY) HYPERTENSION 04/11/2017 JANAY DO, CUATE K Ot R44.3 HALLUCINATIONS, UNSPECIFIED 05/21/2017 JANAY DO, CUATE K Ot F13.90 SEDATIVE, HYPNOTIC, OR ANXIOLYTIC USE, U 05/21/2017 JANAY DO, CUATE K Ot F15.259 OTH STIMULANT DEPEND W STIM-INDUCE PSYCH 05/21/2017 JANAY DO, CUATE K Ot F17.210 NICOTINE DEPENDENCE, CIGARETTES, UNCOMPL 05/21/2017 JANAY DO, CUATE K Ot F20.9 SCHIZOPHRENIA, UNSPECIFIED 05/21/2017 CUATE GUSTAFSON DO Ot F22 DELUSIONAL DISORDERS 05/21/2017 CUATE GUSTAFSON DO Ot F31.9 BIPOLAR DISORDER, UNSPECIFIED 05/21/2017 CUATE GUSTAFSON DO Ot F41.9 ANXIETY DISORDER, UNSPECIFIED 05/21/2017 CUATE GUSTAFSON DO Ot I10 ESSENTIAL (PRIMARY) HYPERTENSION Procedures There is no data. Results Test Result Range Aerobic Bacterial Culture - 08/17/16 00:00 Aerobic Bacterial Culture Note Complete blood count (CBC) with automated white [...] plasma ethanol measurement (mass/volume) < mg/dL <10 Complete blood count (CBC) with automated white blood cell (WBC) differential - 05/20/17 21:27 Blood leukocytes automated count (number/volume) 9.1 10*3/uL 4.3-11.0 Blood erythrocytes automated count (number/volume) 4.74 10*6/uL 4.35-5.85 Venous blood hemoglobin measurement (mass/volume) 13.4 g/dL 13.3-17.7 Blood hematocrit (volume fraction) 39 % 40-54 Automated erythrocyte mean corpuscular volume 82 [foz_us] 80-99 Automated erythrocyte mean corpuscular hemoglobin (mass per erythrocyte) 28 pg 25-34 Automated erythrocyte mean corpuscular hemoglobin concentration measurement ( mass/volume) 34 g/dL 32-36 Automated erythrocyte distribution width ratio 13.3 % 10.0-14.5 Automated blood platelet count (count/volume) 310 10*3/uL 130-400 Automated blood platelet mean volume measurement 10.4 [foz_us] 7.4-10.4 Automated blood neutrophils/100 leukocytes 69 % 42-75 Automated blood lymphocytes/100 leukocytes 18 % 12-44 Blood monocytes/100 leukocytes 9 % 0-12 Automated blood eosinophils/100 leukocytes 3 % 0-10 Automated blood basophils/100 leukocytes 0 % 0-10 Blood neutrophils automated count (number/volume) 6.3 10*3 1.8-7.8 Blood lymphocytes automated count (number/volume) 1.7 10*3 1.0-4.0 Blood monocytes automated count (number/volume) 0.9 10*3 0.0-1.0 Automated eosinophil count 0.3 10*3/uL 0.0-0.3 Automated blood basophil count (count/volume) 0.0 10*3/uL 0.0-0.1 Comprehensive metabolic panel - 05/20/17 21:27 Serum or plasma sodium measurement (moles/volume) 142 mmol/L 135-145 Serum or plasma potassium measurement (moles/volume) 2.9 mmol/L 3.6-5.0 Serum or plasma chloride measurement (moles/volume) 109 mmol/L 98-107 Carbon dioxide 20 mmol/L 21-32 Serum or plasma anion gap determination (moles/volume) 13 mmol/L 5-14 Serum or plasma urea nitrogen measurement (mass/volume) 15 mg/dL 7-18 Serum or plasma creatinine measurement (mass/volume) 1.20 mg/dL 0.60-1.30 Serum or plasma urea nitrogen/creatinine mass ratio 13 NRG Serum or plasma creatinine measurement with calculation of estimated glomerular filtration rate > NRG Serum or plasma glucose measurement (mass/volume) 114 mg/dL 70-105 Serum or plasma calcium measurement (mass/volume) 9.4 mg/dL 8.5-10.1 Serum or plasma total bilirubin measurement (mass/volume) 0.4 mg/dL 0.1-1.0 Serum or plasma alkaline phosphatase measurement (enzymatic activity/volume) 80 U/L 40-136 Serum or plasma aspartate aminotransferase measurement (enzymatic activity/ volume) 27 U/L 5-34 Serum or plasma alanine aminotransferase measurement (enzymatic activity/volume ) 17 U/L 0-55 Serum or plasma protein measurement (mass/volume) 7.1 g/dL 6.4-8.2 Serum or plasma albumin measurement (mass/volume) 4.1 g/dL 3.2-4.5 Serum or plasma thyrotropin measurement by detection limit <=0.05 miu/l (units/ volume) - 05/20/17 21:27 Serum or plasma thyrotropin measurement by detection limit <=0.05 miu/l (units/ volume) 1.71 u[iU]/mL 0.35-4.94 Serum or plasma salicylates measurement (mass/volume) - 05/20/17 21:27 Serum or plasma salicylates measurement (mass/volume) < mg/dL 5.0-20.0 Serum or plasma acetaminophen measurement (mass/volume) - 05/20/17 21:27 Serum or plasma acetaminophen measurement (mass/volume) < ug/mL 10-30 Serum or plasma ethanol measurement (mass/volume) - 05/20/17 21:27 Serum or plasma ethanol measurement (mass/volume) < mg/dL <10 Complete urinalysis with reflex to culture - 05/20/17 21:32 Urine color determination YELLOW NRG Urine clarity determination CLEAR NRG Urine pH measurement by test strip 6 5-9 Specific gravity of urine by test strip 1.025 1.016- 1.022 Urine protein assay by test strip, semi-quantitative 1+ NEGATIVE Urine glucose detection by automated test strip NEGATIVE NEGATIVE Erythrocytes detection in urine sediment by light microscopy 1+ NEGATIVE Urine ketones detection by automated test strip NEGATIVE NEGATIVE Urine nitrite detection by test strip NEGATIVE NEGATIVE Urine total bilirubin detection by test strip NEGATIVE NEGATIVE Urine urobilinogen measurement by automated test strip (mass/volume) NORMAL NORMAL Urine leukocyte esterase detection by dipstick 1+ NEGATIVE Automated urine sediment erythrocyte count by microscopy (number/high power field) [HPF] NRG Automated urine sediment leukocyte count by microscopy (number/high power field ) [HPF] NRG Bacteria detection in urine sediment by light microscopy TRACE NRG Squamous epithelial cells detection in urine sediment by light microscopy 0-2 NRG Crystals detection in urine sediment by light microscopy NONE NRG Casts detection in urine sediment by light microscopy NONE NRG Mucus detection in urine sediment by light microscopy NEGATIVE NRG Complete urinalysis with reflex to culture NO NRG Urine drug screening test - 05/20/17 21:32 Urine phencyclidine detection by screening method NEGATIVE NEGATIVE Urine benzodiazepines detection by screening method NEGATIVE NEGATIVE Urine cocaine detection NEGATIVE NEGATIVE Urine [...] Status Pt. Type Provider Facility Loc./Unit Complaint [id number] 05/20/2017 20:29:00 05/21/2017 02:25:00 DIS Emergency JANAY DOCUATE [facility] ER OVERDOSE [id number] 04/05/2017 23:29:00 04/06/2017 01:07:00 DIS Emergency JANAY DOCUAET K [facility] ER PSYCHOSIS [id number] 04/05/2017 22:24:00 04/05/2017 23:06:00 DIS Emergency JANAY DO, CUATE K [facility] ER HALLUCINATIONS [id number] 09/07/2016 12:05:00 09/07/2016 18:42:00 DIS Emergency DAVID HULL [facility] ER PSYCH EVAL [id number] 09/06/2016 20:22:00 09/06/2016 20:33:00 DIS Emergency MINA SILVA COMPUTER INSTALLATION ENGINEER [facility] ER PSYCH EVAL [id number] 09/06/2016 19:26:00 09/06/2016 19:52:00 DIS Emergency MINA SILVA COMPUTER INSTALLATION ENGINEER [facility] ER PSYCH EVAL [id number] 05/07/2015 10:55:00 05/07/2015 23:59:59 CLS Outpatient VAN CARMELLA WILKINS NOTE SPECIALIST [facility] QUICK [id number] 03/01/2014 11:25:00 03/01/2014 23:59:59 CLS Outpatient LANEINGSJANET COMPUTER INSTALLATION ENGINEER [facility] QUICK POSSIBLE SPIDER BITE [id number] 05/17/2017 02:50:00 Document Registration [id number] 05/17/2017 02:50:00 Document Registration [id number] 05/17/2017 02:50:00 Document Registration [id number] 05/17/2017 02:50:00 Document Registration [id number] 07/24/2010 10:50:00 Document Registration [id number] 02/24/2017 14:35:00 02/24/2017 23:59:59 CLS Outpatient ARAMBULA ADITYA [facility] [id number] 08/20/2016 13:05:00 Document Registration [id number] 03/18/2013 13:00:00 03/18/2013 23:59:59 CLS Outpatient SANTO JULIAN APRN
--- OUTSIDE RECORDS SUMMARY | 2017-11-12 21:32 | XMS REPORT ---
Author Author SANTO JULIAN Organization [facility] Address [address] [place] [address] Care Team Providers Care Business Consultant Name Role Phone SANTO JULIAN Unavailable PROBLEMS Type Condition ICD9-CM Code FRG13-KB Code Onset Dates Condition Status SNOMED Code Problem URI (upper respiratory infection) J06.9 Active 11080125 Problem IV drug user F19.90 Active 757533613 Problem Methamphetamine addiction F15.20 Active 127810581 Problem Methamphetamine dependence, 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 Active 240115846 Problem Chest wall pain R07.89 Active 379745331 Problem HTN (hypertension) I10 Active 59670848 Problem Depression F32.9 Active 31596731 Problem Cellulitis L03.90 Active 457368483 ALLERGIES Substance Reaction Event Type Date Status Sulfamethoxazole-TMP DS Unknown Drug Allergy Feb, Active ENCOUNTERS Encounter Location Date Diagnosis [facility] [id number] [place] [phone] Feb, Poison leydi L23.7 [facility] [address] [place] [id number] [place] [phone] Dec, Depression F32.9 ; Methamphetamine dependence, 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 ; HTN (hypertension) I10 and Cellulitis L03.90 [facility] [id number] [place] [phone] Dec, [facility] [address] [phone] Dec, Abscess of arm, left L02.414 [facility] [address] [place] [address] Dec, [facility] [id number] [place] [phone] Dec, [facility] [address] [address] October, [facility] [id number] [place] [phone] October, [facility] [id number] [place] [phone] Sep, HTN (hypertension) I10 [facility] [id number] [place] [phone] Sep, [facility] [address] [place] [address] Sep, Methamphetamine addiction F15.20 [place] [id number] [place] [phone] Sep, IV drug user F19.90 ; Depression F32.9 ; Methamphetamine addiction F15.20 and Suicide ideation R45.851 [place] [id number] [place] [address] Sep, Suicidal ideation R45.851 ; IV drug user F19.90 ; Methamphetamine addiction F15.20 and Methamphetamine dependence, 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 [facility] [id number] [place] [address] Aug, Cellulitis L03.90 ; IV drug user F19.90 and HTN ( hypertension) I10 [place] [address] [address] Aug, Cellulitis L03.90 [facility] [id number] [place] [address] Aug, IV drug user F19.90 ; Cellulitis L03.90 and HTN ( hypertension) I10 [facility] [id number] [place] [phone] Dec, [facility] [id number] [place] [phone] Nov, [facility] [address] [address] 29 Jul, 2015 HTN (hypertension) I10 ; Depression F32.9 and Cellulitis L03.90 [place] [address] [address] May, URI (upper respiratory infection) J06.9 ; HTN (hypertension ) I10 and Chest wall pain R07.89 [place] [address] [address] May, Costochondral chest pain R07.1 ; Allergic rhinitis J30.9 and Cough R05 [address] [address] May, Acute bronchitis, unspecified J20.9 ; Tobacco abuse counseling Z71.6 and Elevated blood pressure I10 [address] [address] Jan, [place] [address] [address] Jan, Elevated blood sugar level 790.[address] [address] Jan, IV drug abuse 305.90 ; Essential hypertension 401.9 and Anxiety 300.[address] [address] 14 Sep, 2014 [place] [address] [address] Sep, [place] [address] [address] Mar, [place] [address] [address] Mar, [place] [address] [address] 29 Jul, 2011 IMMUNIZATIONS Vaccine Route Administration Date Status SOLUMEDROL (UP TO 125 MG) IM Intramuscular Feb 24, 2017 Administered SOCIAL HISTORY Never Assessed REASON FOR VISIT posion leydi on back of legs has doubled in size in the last 24hr [facility] PLAN OF CARE VITAL SIGNS Height 72.5 in 2017-02-24 Weight 251.2 lbs 2017-02-24 Temperature 98.4 degrees Fahrenheit 2017-02-24 Heart Rate 92 bpm 2017-02-24 Respiratory Rate 18 2017-02-24 BMI 33.60 kg/m2 2017-02-24 Blood pressure systolic 140 mmHg 2017-02-24 Blood pressure diastolic 92 mmHg 2017-02-24 MEDICATIONS Medication Instructions Dosage Frequency Start Date End Date Duration Status PredniSONE 20 mg Orally Once a day 2 tablets 24h Feb, Feb, 05 days Active RESULTS No Results PROCEDURES Procedure Date Ordered Result Body Site SOLUMEDROL (UP TO 125 MG) Feb 24, 2017 THER/PROPH/DIAG INJ, SC/IM Feb 24, 2017 INSTRUCTIONS MEDICATIONS ADMINISTERED No Known Medications MEDICAL (GENERAL) HISTORY Type Description Date Medical History hypertension Medical History drug abuse--IVDU meth--last used 08/24/2016. Completed 28 day rehab at [facility] on 12-30-14 Surgical History orthopedic surgery-Right ankle fx with hardware 1993 Surgical History hypospadias repair Hospitalization History Surgery
== END 2017-11-12 20:55 | disposition left against medical advice (07) ==
LOC: EDUNIT# 20:40 → ER 20:41
DX: Z03.89 Encounter for observation for other suspected diseases and conditions ruled out (principal)
CPT/HCPCS: 36415; 80053; 80320; 80329; 85025

== ENCOUNTER 2017-12-23 09:32 | Inpatient (IN) | payer SELFPAY ==
[~2017-12-23] VITALS: Ht 182.9 cm; Wt 113.4 kg
[2017-12-23] MEDS ORDERED: LACTATED RINGERS 1,000 ML IV ONE ×2 (09:43→09:45)
[2017-12-23] MEDS ORDERED: LORazepam INJ 2 MG/ML (ATIVAN) VIAL IVP ONE ×2 (09:45→11:15)
[2017-12-23] MEDS ORDERED: KETOROLAC 30 MG/ML VIAL IVP ONE (09:45)
--- OUTSIDE RECORDS SUMMARY | 2017-12-23 09:46 | XMS REPORT | Continuity of Care Document ---
Author Author [facility] Organization [facility] Address Unknown Phone Unavailable Allergies Active Description Code Type Severity Reaction Onset Reported/Identified Relationship to Patient Clinical Status Yes No Known Drug Allergies [id number] Drug Allergy Unknown N/A 07/24/2010 Medications There [...] GUSTAFSON DO Ot I10 ESSENTIAL (PRIMARY) HYPERTENSION 11/12/2017 OSMAR THOMASP Ot Z03.89 ENCNTR FOR OBS FOR OTH SUSPECTED DISEASE 11/14/2017 OSMAR THOMAS Ot Z03.89 ENCNTR FOR OBS FOR OTH SUSPECTED DISEASE Procedures There is no data. Results Test [...] automated white blood cell (WBC) differential - 11/12/17 20:50 Blood leukocytes automated count (number/volume) 12.2 10*3/uL 4.3-11.0 Blood erythrocytes automated count (number/volume) 5.16 10*6/uL 4.35-5.85 Venous blood hemoglobin measurement (mass/volume) 15.4 g/dL 13.3-17.7 Blood hematocrit (volume fraction) 42 % 40-54 Automated erythrocyte mean corpuscular volume 81 [foz_us] 80-99 Automated erythrocyte mean corpuscular hemoglobin (mass per erythrocyte) 30 pg 25-34 Automated erythrocyte mean corpuscular hemoglobin concentration measurement ( mass/volume) 37 g/dL 32-36 Automated erythrocyte distribution width ratio 13.4 % 10.0-14.5 Automated blood platelet count (count/volume) 326 10*3/uL 130-400 Automated blood platelet mean volume measurement 11.2 [foz_us] 7.4-10.4 Automated blood neutrophils/100 leukocytes 72 % 42-75 Automated blood lymphocytes/100 leukocytes 15 % 12-44 Blood monocytes/100 leukocytes 11 % 0-12 Automated blood eosinophils/100 leukocytes 2 % 0-10 Automated blood basophils/100 leukocytes 0 % 0-10 Blood neutrophils automated count (number/volume) 8.8 10*3 1.8-7.8 Blood lymphocytes automated count (number/volume) 1.8 10*3 1.0-4.0 Blood monocytes automated count (number/volume) 1.3 10*3 0.0-1.0 Automated eosinophil count 0.2 10*3/uL 0.0-0.3 Automated blood basophil count (count/volume) 0.0 10*3/uL 0.0-0.1 Comprehensive metabolic panel - 11/12/17 20:50 Serum or plasma sodium measurement (moles/volume) 145 mmol/L 135-145 Serum or plasma potassium measurement (moles/volume) 3.6 mmol/L 3.6-5.0 Serum or plasma chloride measurement (moles/volume) 111 mmol/L 98-107 Carbon dioxide 15 mmol/L 21-32 Serum or plasma anion gap determination (moles/volume) 19 mmol/L 5-14 Serum or plasma urea nitrogen measurement (mass/volume) 22 mg/dL 7-18 Serum or plasma creatinine measurement (mass/volume) 2.13 mg/dL 0.60-1.30 Serum or plasma urea nitrogen/creatinine mass ratio 10 NRG Serum or plasma creatinine measurement with calculation of estimated glomerular filtration rate 35 NRG Serum or plasma glucose measurement (mass/volume) 124 mg/dL 70-105 Serum or plasma calcium measurement (mass/volume) 10.3 mg/dL 8.5-10.1 Serum or plasma total bilirubin measurement (mass/volume) 0.9 mg/dL 0.1-1.0 Serum or plasma alkaline phosphatase measurement (enzymatic activity/volume) 90 U/L 40-136 Serum or plasma aspartate aminotransferase measurement (enzymatic activity/ volume) 48 U/L 5-34 Serum or plasma alanine aminotransferase measurement (enzymatic activity/volume ) 31 U/L 0-55 Serum or plasma protein measurement (mass/volume) 8.1 g/dL 6.4-8.2 Serum or plasma albumin measurement (mass/volume) 4.8 g/dL 3.2-4.5 Serum or plasma salicylates measurement (mass/volume) - 11/12/17 20:50 Serum or plasma salicylates measurement (mass/volume) < mg/dL 5.0-20.0 Serum or plasma acetaminophen measurement (mass/volume) - 11/12/17 20:50 Serum or plasma acetaminophen measurement (mass/volume) < ug/mL 10-30 Serum or plasma ethanol measurement (mass/volume) - 11/12/17 20:50 Serum or plasma ethanol measurement (mass/volume) < mg/dL <10 Encounters ACCT No. Visit Date/Time Discharge Status Pt. Type Provider Facility Loc./Unit Complaint [id number] 11/12/2017 20:41:00 11/12/2017 20:55:00 DIS Emergency OSMAR THOMAS [facility] ER POSS DEHYDRATION [id number] 05/20/2017 20:29:00 05/21/2017 02:25:00 DIS Emergency JANAY CUATE PIKE [facility] ER OVERDOSE [id number] 04/05/2017 23:29:00 04/06/2017 01:07:00 DIS Emergency JANAY CUATE PIKE [facility] ER PSYCHOSIS [id number] 04/05/2017 22:24:00 04/05/2017 23:06:00 DIS Emergency JANAY CUATE PIKE [facility] ER HALLUCINATIONS [id number] 09/07/2016 12:05:00 09/07/2016 18:42:00 DIS Emergency DAVID HULL [facility] ER PSYCH EVAL [id number] 09/06/2016 20:22:00 09/06/2016 20:33:00 DIS Emergency MINA SILVA OB/GYN [facility] ER PSYCH EVAL [id number] 09/06/2016 19:26:00 09/06/2016 19:52:00 DIS Emergency MINA SILVA OB/GYN [facility] ER PSYCH EVAL [id number] 05/07/2015 10:55:00 05/07/2015 23:59:59 CLS Outpatient CARMELLA MOYA [facility] QUICK [id number] 03/01/2014 11:25:00 03/01/2014 23:59:59 CLS Outpatient JANET CRYSTAL OB/GYN [facility] QUICK POSSIBLE SPIDER BITE [id number] 05/17/2017 02:50:00 Document Registration [id number] 05/17/2017 02:50:00 Document Registration [id number] 05/17/2017 02:50:00 Document Registration [id number] 05/17/2017 02:50:00 Document Registration [id number] 07/24/2010 10:50:00 Document Registration [id number] 02/24/2017 14:35:00 02/24/2017 23:59:59 CLS [facility] [id number] 08/20/2016 13:05:00 Document Registration [id number] 03/18/2013 13:00:00 03/18/2013 23:59:59 CLS Outpatient SANTO JULIAN APRN
--- NOTE | 2017-12-23 09:52 | ED Psychosocial ---
General Stated Complaint: SUBSTANCE ABUSE Source: patient, police, EMS Exam Limitations: no limitations History of Present Illness Date Seen by Provider: Dec 23, 2017 Time Seen by Provider: 09:40 Initial Comments Patient presents to the ER by EMS with police and a chief complaint that she called out to respond to the patient's house and he was running around in the yard with no shoes and feels he saw the Cobol Mainframe Developer he threw himself on the ground in the prone position held don't kill me don't kill me. EMS says they're able to talk him down and he gave me history that he did some meth and marijuana last night and he says he's never had a trip like this before. He says there were some pills on the counter of hydrocodone but he did not take any of them last night. Patient endorses delusions of persecution people are trying to kill him. He's hearing audio hallucinations saying that he is going to and is going to be electrocuted and that people are going to kill him. He is afraid that his dog may not be well and that his parents might be to he said the voices told him this. He says he has a history of high blood pressure for which she uses metoprolol but no history of schizophrenia, hearing voices before or other medical history. The Cobol Mainframe Developer says that they checked the house and the dogs were okay and the parents are apparently on vacation in [place] right now. Patient says she's been using methamphetamine for the past 5 years and used to deal that he doesn't feel any more is been slowing down his use. He says he's never had a reaction like this to methamphetamine before. Allergies and Home Medications Allergies Coded Allergies: No Known Drug Allergies (Unverified , 07/24/10) Patient Home Medication List Home Medication List Reviewed: Yes Constitutional: No chills, No diaphoresis EENTM: No ear discharge, No ear pain Respiratory: cough, phlegm, short of breath (mild); No wheezing Cardiovascular: No chest pain, No edema Gastrointestinal: No abdominal pain, No constipation, No nausea Genitourinary: No decreased output, No dysuria Musculoskeletal: No back pain, No joint pain Skin: No pruritus, No rash Psychiatric/Neurological: Denies Headache, Denies Numbness, Denies Paresthesia , Denies Seizure Past Qevbfmz-Dhtlqs-Fxhhcz Hx Patient Social History Alcohol Use: Occasionally Uses Drug of Choice: +IV METH 2-3 TIMES A DAY X 2-3 YEARS, OCC. IV BENZODIAZEPINE USE, THC USE. Smoking Status: Current Everyday Smoker Type Used: Cigarettes 2nd Hand Smoke Exposure: Yes Recent Foreign Travel: No Contact w/Someone Who Travel: No Recent Hopitalizations: No Immunizations Up To Date Tetanus Booster (TDap): Unknown Seasonal Allergies Seasonal Allergies: No Past Medical History Surgeries: Yes Orthopedic Respiratory: No Cardiac: Yes Hypertension Neurological: No Genitourinary: No Gastrointestinal: No Musculoskeletal: No Endocrine: No HEENT: No Cancer: No Psychosocial: Yes Anxiety, Bipolar, Schizophrenia Integumentary: Yes (CELLULITIS/ABSCESSES) Family Medical History No Pertinent Family Hx Physical Exam Vital Signs - First Documented 12/23/17 09:32 Temp 101.8 Pulse 134 Resp 22 B/P (MAP) 184/109 (134) Pulse Ox 98 O2 Delivery Room Air Capillary Refill : Height, Weight, BMI Height: 6'" Weight: 250lbs. oz. 113.495208wi; BMI Method:Stated General Appearance: mild distress, other (disheveled, anxious) HEENT: PERRL/EOMI, normal ENT inspection, pharynx normal (oropharynx is mildly dry) Neck: non-tender, normal inspection Respiratory: chest non-tender, no respiratory distress, no accessory muscle use , rhonchi (bilateral) Cardiovascular: normal peripheral pulses, regular rate, rhythm Peripheral Pulses: 2+ Dorsalis Pedis (R), 2+ Left Dors-Pedis (L), 2+ Radial Pulses (R), 2+ Radial Pulses (L) Gastrointestinal: normal bowel sounds, non tender, soft Extremities: normal range of motion, non-tender, normal inspection, normal capillary refill Neurologic/Psychiatric: alert, oriented x 3, other (anxious) Appearance/Memory: disheveled, impaired insight Behavior/Eye Contact: cooperative, good eye contact, normal speech, increased rate of speech Thoughts/Hallucinations: auditory hallucinations, delusions, obsessive, paranoid, persecution Skin: damp, other (few scattered abrasions) Progress/Results/Core Measures Results/Orders Lab Results Laboratory Tests Test 12/23/17 10:09 Range/Units White Blood Count 12.8 H 4.3-11.0 10^3/uL Red Blood Count 4.75 4.35-5.85 10^6/uL Hemoglobin 13.7 13.3-17.7 G/DL Hematocrit 38 L 40-54 % Mean Corpuscular Volume 81 80-99 FL Mean Corpuscular Hemoglobin 29 25-34 PG Mean Corpuscular Hemoglobin Concent 36 32-36 G/DL Red Cell Distribution Width 13.6 10.0-14.5 % Platelet Count 351 130-400 10^3/uL Mean Platelet Volume 10.9 H 7.4-10.4 FL Neutrophils (%) (Auto) 75 42-75 % Lymphocytes (%) (Auto) 15 12-44 % Monocytes (%) (Auto) 10 0-12 % Eosinophils (%) (Auto) 1 0-10 % Basophils (%) (Auto) 0 0-10 % Neutrophils # (Auto) 9.6 H 1.8-7.8 X 10^3 Lymphocytes # (Auto) 1.9 1.0-4.0 X 10^3 Monocytes # (Auto) 1.3 H 0.0-1.0 X 10^3 Eosinophils # (Auto) 0.1 0.0-0.3 10^3/uL Basophils # (Auto) 0.0 0.0-0.1 10^3/uL Prothrombin Time 14.4 12.2-14.7 SEC INR Comment 1.1 0.8-1.4 Activated Partial Thromboplast Time 29 24-35 SEC Sodium Level 139 135-145 MMOL/L Potassium Level 3.0 L 3.6-5.0 MMOL/L Chloride Level 106 98-107 MMOL/L Carbon Dioxide Level 17 L 21-32 MMOL/L Anion Gap 16 H 5-14 MMOL/L Blood Urea Nitrogen 29 H 7-18 MG/DL Creatinine 1.71 H 0.60-1.30 MG/DL Estimat Glomerular Filtration Rate 45 BUN/Creatinine Ratio 17 Glucose Level 139 H 70-105 MG/DL Lactic Acid Level 1.74 0.50-2.00 MMOL/L Calcium Level 9.6 8.5-10.1 MG/DL Total Bilirubin 0.8 0.1-1.0 MG/DL Aspartate Amino Transf (AST/SGOT) 40 H 5-34 U/L Alanine Aminotransferase (ALT/SGPT) 27 0-55 U/L Alkaline Phosphatase 83 40-136 U/L Troponin I < 0.30 <0.30 NG/ML Total Protein 7.4 6.4-8.2 GM/DL Albumin 4.6 H 3.2-4.5 GM/DL My Orders Orders - JULIAN PEDROZA Lorazepam Injection (Ativan Injection) (12/23/17 09:45) Cbc With Automated Diff (12/23/17 09:43) Comprehensive Metabolic Panel (12/23/17:43) Lactic Acid Analyzer (12/23/17:43) Blood Culture (12/23/17:43) Sputum Culture (12/23/17:43) Ua Culture If Indicated (12/23/17:43) Protime With Inr (12/23/17:43) Partial Thromboplastin Time (12/23/17:43) Chest 1 View, Ap/Pa Only (12/23/17:43) O2 (12/23/17 09:43) Saline Lock/Iv-Start (12/23/17:43) Saline Lock/Iv-Start (12/23/17:43) Ekg Tracing (12/23/17:43) Troponin I (12/23/17 09:43) Vital Signs Adult Sepsis Patie Q15M (12/23/17 09:43) Remove Rings In Anticipation O (12/23/17 09:43) Lactated Ringers (Lr 1000 Ml Iv Solution (12/23/17 09:43) Drug Screen Stat (Urine) (12/23/17 09:43) Lactated Ringers (Lr 1000 Ml Iv Solution (12/23/17 09:45) Ketorolac Injection (Toradol Injection) (12/23/17 09:45) Lorazepam Injection (Ativan Injection) (12/23/17 11:15) Medications Given in ED Current Medications Medications Dose Ordered Sig/Mikel Route Start Time Stop Time Status Last Admin Dose Admin Ketorolac Tromethamine 10 mg ONCE ONCE IVP 12/23/17 09:45 12/23/17 09:48 DC 12/23/17 10:14 10 MG Lactated Ringer's 1,000 ml @ 0 mls/hr Q0M ONCE IV 12/23/17 09:43 12/23/17 09:47 DC 12/23/17 10:46 1,000 MLS/HR Lactated Ringer's 1,000 ml @ 0 mls/hr Q0M ONCE IV 12/23/17 09:45 12/23/17 09:48 DC 12/23/17 10:14 1,000 MLS/HR Lorazepam 2 mg ONCE ONCE IVP 12/23/17 09:45 12/23/17 09:47 DC 12/23/17 09:51 2 MG Vital Signs/I&O 12/23/17 09:32 Temp 101.8 Pulse 134 Resp 22 B/P (MAP) 184/109 (134) Pulse Ox 98 O2 Delivery Room Air Progress Progress Note #1: Time: 09:53 Progress Note This tachycardia and a fever and coarse breath sounds so we'll get an x-ray obtained some labs for a septic workup. Difficult to distinguish whether this represents sepsis secondary to pneumonia versus reaction to his methamphetamine use last night. We are going to give him a couple liters of fluid and a couple milligrams Ativan to help with his agitation. So far he has been cooperative. We 'll give him some Toradol for his fever. Progress Note #2: Time: 11:13 Progress Note Patient still tearful and crying out. We've offered him 2 more milligrams of Ativan which she is accepted. His potassium level low is still low so we will start him on repleating that by mouth. His creatinine is elevated at 1.7 but a month ago was 2.1 so difficult to know if he has a history of chronic kidney disease but by history he denies that. We are going to treat it like an KEEGAN and give him a total 2 L fluids. His x-ray is clear but his lung sounds were coarse and he has a fever as well as productive cough so it's dubious that this is pneumonia or bronchitis or to go ahead and treat him with Rocephin and seek inpatient treatment. Initial ECG Impression Date: Dec 23, 2017 Initial ECG Impression Time: 09:45 Initial ECG Rate: 131 Initial ECG Rhythm: S.Tach Initial ECG Intervals: Normal Initial ECG Impression: Nonspecific Changes Initial ECG Comparisson: No Previous ECG Available Comment Sinus tachycardia without ST elevation or depression. Diagnostic Imaging Diagonstic Imaging: Xray Plain Films/CT/US/NM/MRI: chest (1v) Comments [facility] [place], [place] NAME: GAGE WALTERS [facility] REC#: [id number] PT STATUS: REG ER : 1980 PHYSICIAN: JULIAN PEDROZA MD ADMIT DATE: 12/23/17/ER Draft Date of Exam:12/23/17 CHEST 1 VIEW, AP/PA ONLY INDICATION: Altered mental status. Comparison with 05/07/2015. FINDINGS: Portable chest shows the lungs to be well-aerated and clear. Heart is not enlarged. There is no pulmonary edema. No pneumothorax or pleural effusions. No bony abnormalities. IMPRESSION: Normal portable chest. Dictated on workstation # [id number] Dict: 12/23/17 1037 Trans: 12/23/17 [id number] WES [id number] Interpreted by: LUZ MARINA DIAL MD Electronically signed by: Reviewed: Reviewed by Me Departure Communication (Admissions) Time/Spoke to Admitting Phy: 11:21 Discussed the case with Dr. Mathew and possibility of a pneumonia and choice of Rocephin and azithromycin she agrees and will accept the patient. Impression Primary Impression: Methamphetamine-induced psychotic disorder Additional Impressions: Sepsis Qualified Codes: A41.9 - Sepsis, unspecified organism Pneumonia Qualified Codes: J18.9 - Pneumonia, unspecified organism Disposition: ADMITTED INPATIENT Condition: Stable Admissions Decision to Admit Reason: Admit from ER (General) Decision to Admit/Date: Dec 23, 2017 Time/Decision to Admit Time: 11:21 Departure-Patient Inst. Referrals: [facility] (PCP/Family) Primary Care Physician Copy Copies To 1: JEFFREY APODACA TITUS J Dec 23, 2017 09:52
[2017-12-23 10:20] LABS: BASOPHILS % (AUTO) 0 % (0-10); EOSINOPHILS # (AUTO) 0.1 10^3/uL (0.0-0.3); EOSINOPHILS % (AUTO) 1 % (0-10); HEMATOCRIT 38 % (40-54); HEMOGLOBIN 13.7 G/DL (13.3-17.7); LYMPHOCYTES # (AUTO) 1.9 X 10^3 (1.0-4.0); LYMPHOCYTES % (AUTO) 15 % (12-44); MEAN CORPUSCULAR HEMOGLOBIN 29 PG (25-34); MEAN CORPUSCULAR HGB CONC 36 G/DL (32-36); MEAN CORPUSCULAR VOLUME 81 FL (80-99); MEAN PLATELET VOLUME 10.9 FL (7.4-10.4); MONOCYTES # (AUTO) 1.3 X 10^3 (0.0-1.0); MONOCYTES % (AUTO) 10 % (0-12); NEUTROPHILS # (AUTO) 9.6 X 10^3 (1.8-7.8); NEUTROPHILS % (AUTO) 75 % (42-75); PLATELET COUNT 351 10^3/uL (130-400); RED BLOOD COUNT 4.75 10^6/uL (4.35-5.85); RED CELL DISTRIBUTION WIDTH 13.6 % (10.0-14.5); WHITE BLOOD COUNT 12.8 10^3/uL (4.3-11.0)
[2017-12-23] MEDS ORDERED: BLOOD PRESSURE (10:26)
[2017-12-23 10:39] LABS: INR 1.1 (0.8-1.4); PROTHROMBIN TIME PATIENT 14.4 SEC (12.2-14.7)
--- NOTE | 2017-12-23 10:41 | Diagnostic Imaging Report ---
INDICATION: Altered mental status. Comparison with 05/07/2015. FINDINGS: Portable chest shows the lungs to be well-aerated and clear. Heart is not enlarged. There is no pulmonary edema. No pneumothorax or pleural effusions. No bony abnormalities. IMPRESSION: Normal portable chest. Dictated by: Dictated on workstation # [id number]
[2017-12-23 10:50] LABS: ALANINE AMINOTRANSFERASE 27 U/L (0-55); ALBUMIN 4.6 GM/DL (3.2-4.5); ALKALINE PHOSPHATASE 83 U/L (40-136); BILIRUBIN,TOTAL 0.8 MG/DL (0.1-1.0); BUN/CREATININE RATIO 17; CALCIUM 9.6 MG/DL (8.5-10.1); CARBON DIOXIDE 17 MMOL/L (21-32); CHLORIDE 106 MMOL/L (98-107); CREATININE SERUM 1.71 MG/DL (0.60-1.30); GFR ESTIMATED 45; GLUCOSE 139 MG/DL (70-105); SODIUM 139 MMOL/L (135-145); TOTAL PROTEIN 7.4 GM/DL (6.4-8.2)
[2017-12-23] MEDS ORDERED: cefTRIAXone INJECTION 1,000 MG in NS (IVPB) 50 ML IV ONE (11:30)
--- OUTSIDE RECORDS SUMMARY | 2017-12-23 11:37 | XMS REPORT | Continuity of Care Document ---
Author Author [facility] Organization [facility] Address Unknown Phone Unavailable Allergies Active Description Code Type Severity Reaction Onset Reported/Identified Relationship to Patient Clinical Status Yes No Known Drug Allergies [id number] Drug Allergy Unknown N/A 07/24/2010 Medications There [...] Status Pt. Type Provider Facility Loc./Unit Complaint [id number] 11/12/2017 20:41:00 11/12/2017 20:55:00 DIS Emergency OSMAR THOMAS [facility] ER POSS DEHYDRATION [id number] 05/20/2017 20:29:00 05/21/2017 02:25:00 DIS Emergency JANAY CUATE PIEK [facility] ER OVERDOSE [id number] 04/05/2017 23:29:00 04/06/2017 01:07:00 DIS Emergency JANAY CUATE PIKE [facility] ER PSYCHOSIS [id number] 04/05/2017 22:24:00 04/05/2017 23:06:00 DIS Emergency JANAY CUATE PIKE [facility] ER HALLUCINATIONS [id number] 09/07/2016 12:05:00 09/07/2016 18:42:00 DIS Emergency DAVID HULL [facility] ER PSYCH EVAL [id number] 09/06/2016 20:22:00 09/06/2016 20:33:00 DIS Emergency MINA SILVA NAIL SETTER [facility] ER PSYCH EVAL [id number] 09/06/2016 19:26:00 09/06/2016 19:52:00 DIS Emergency MINA SILVA NAIL SETTER [facility] ER PSYCH EVAL [id number] 05/07/2015 10:55:00 05/07/2015 23:59:59 CLS Outpatient CARMELLA MOYA [facility] QUICK [id number] 03/01/2014 11:25:00 03/01/2014 23:59:59 CLS Outpatient JANET CRYSTAL NAIL SETTER [facility] QUICK POSSIBLE SPIDER BITE [id number] 05/17/2017 02:50:00 Document Registration [id number] 05/17/2017 02:50:00 Document Registration [id number] 05/17/2017 02:50:00 Document Registration [id number] 05/17/2017 02:50:00 Document Registration [id number] 07/24/2010 10:50:00 Document Registration [id number] 02/24/2017 14:35:00 02/24/2017 23:59:59 CLS [facility] [id number] 08/20/2016 13:05:00 Document Registration [id number] 03/18/2013 13:00:00 03/18/2013 23:59:59 CLS Outpatient SANTO JULIAN APRN
[2017-12-23 12:30] VITALS: BP 150/102
[2017-12-23] MEDS ORDERED: AZITHROMYCIN 250 MG TAB (ZITHROMAX) PO NR (12:52)
[2017-12-23] MEDS ORDERED: LORazepam INJ 2 MG/ML (ATIVAN) VIAL IV PRN ×2 (13:00→21:00)
[2017-12-23] MEDS: KCL 20 MEQ TAB (K-DUR) PO SCH ×2 (13:06→21:46)
[2017-12-23 19:26] VITALS: BP 165/101
[2017-12-23] MEDS: CATHETER FLUSH 10 ML SYR IV SCH (20:00)
[2017-12-23] MEDS ORDERED: CATHETER FLUSH 10 ML SYR IV PRN (20:45)
[2017-12-23] MEDS ORDERED: LORazepam INJ 2 MG/ML (ATIVAN) VIAL IVP PRN (23:59)
[2017-12-24] VITALS: BP 169/97
[2017-12-24] MEDS ORDERED: NICOTINE 21 MG (NICODERM) PATCH TD ONE (02:30)
[2017-12-24 04:26] VITALS: BP 173/99
[2017-12-24 05:38] LABS: BASOPHILS % (AUTO) 0 % (0-10); EOSINOPHILS # (AUTO) 0.3 10^3/uL (0.0-0.3); EOSINOPHILS % (AUTO) 4 % (0-10); HEMATOCRIT 37 % (40-54); HEMOGLOBIN 12.6 G/DL (13.3-17.7); LYMPHOCYTES # (AUTO) 2.4 X 10^3 (1.0-4.0); LYMPHOCYTES % (AUTO) 29 % (12-44); MEAN CORPUSCULAR HEMOGLOBIN 28 PG (25-34); MEAN CORPUSCULAR HGB CONC 34 G/DL (32-36); MEAN CORPUSCULAR VOLUME 83 FL (80-99); MEAN PLATELET VOLUME 10.7 FL (7.4-10.4); MONOCYTES # (AUTO) 0.9 X 10^3 (0.0-1.0); MONOCYTES % (AUTO) 10 % (0-12); NEUTROPHILS # (AUTO) 4.9 X 10^3 (1.8-7.8); NEUTROPHILS % (AUTO) 58 % (42-75); PLATELET COUNT 301 10^3/uL (130-400); RED BLOOD COUNT 4.47 10^6/uL (4.35-5.85); RED CELL DISTRIBUTION WIDTH 13.8 % (10.0-14.5); WHITE BLOOD COUNT 8.5 10^3/uL (4.3-11.0)
[2017-12-24 05:59] LABS: ALANINE AMINOTRANSFERASE 22 U/L (0-55); ALKALINE PHOSPHATASE 71 U/L (40-136); BILIRUBIN,TOTAL 0.6 MG/DL (0.1-1.0); BUN/CREATININE RATIO 17; CALCIUM 8.8 MG/DL (8.5-10.1); CARBON DIOXIDE 21 MMOL/L (21-32); CHLORIDE 111 MMOL/L (98-107); CREATININE SERUM 0.83 MG/DL (0.60-1.30); GFR ESTIMATED > 60; GLUCOSE 96 MG/DL (70-105); POTASSIUM 3.6 MMOL/L (3.6-5.0); SODIUM 141 MMOL/L (135-145); TOTAL PROTEIN 6.5 GM/DL (6.4-8.2)
[2017-12-24] MEDS: CATHETER FLUSH 10 ML SYR IV SCH (06:12)
[2017-12-24 08:00] VITALS: BP 149/88
[2017-12-24] MEDS: KCL 20 MEQ TAB (K-DUR) PO SCH (08:16)
[2017-12-24] MEDS ORDERED: METO-370 PO (08:36)
--- NOTE | 2017-12-24 08:46 | Diagnostic Imaging Report ---
INDICATION: Congestion. COMPARISON: 12/23/2017. FINDINGS: Two views of the chest are obtained. Heart size is normal. The pulmonary vessels appear unremarkable. There is no pneumothorax, mediastinal widening or pleural fluid. There is some minimal patchy infiltrate in the lateral right lung base. The left lung is clear. The osseous structures appear unremarkable. IMPRESSION: Minimal right basilar atelectasis or infiltrate. Dictated by: Dictated on workstation # [id number]
[2017-12-24] MEDS ORDERED: AZITHROMYCIN 250 MG TAB (ZITHROMAX) PO SCH (09:00)
[2017-12-24] MEDS ORDERED: cefTRIAXone 1 GM/NS 50 ML IVPB IV SCH ×2 (09:00)
--- NOTE | 2017-12-24 10:46 | Short Stay Summary-Hospitalist ---
History of Present Illness HPI/Chief Complaint CC: Altered mental status HPI: This is a 37-year-old white male clinic patient of [facility] who is brought to the ER after the head athletic trainer/strength coach was called and patient was found to have altered mental status. Workup in the ER revealed methamphetamine use and patient was found in a psychotic state likely due to the methamphetamine use. Currently he denies any pain rated to have breakfast and walk around and is agreeable for going home. This whole situation has happened before due to methamphetamine use. Source: patient Exam Limitations: no limitations Date Seen 12/24/17 Time Seen by Provider: 10:00 Attending Physician Jessica Mathew MD [place] [facility] Referring Physician Date of Admission Dec 23, 2017 at 11:20 Home Medications & Allergies Home Medications Reviewed patient Home Medication Reconciliation performed by pharmacy medication reconciliations renewable energy technician and/or nursing. Patients Allergies have been reviewed. Allergies Allergies Coded Allergies No Known Drug Allergies (Unverified07/24/10) Past Mkwhjfi-Hufzhn-Qptauz Hx Past Med/Social Hx: Reviewed Nursing Past Med/Soc Hx, Reviewed and Corrections made Patient Social History Marrital Status: single Employed/Student: unemployed Alcohol Use: Occasionally Uses Alcohol Beverage of Choice: [place] Recreational Drug Use: Yes Drug of Choice: +IV METH 2-3 TIMES A DAY X 2-3 YEARS, OCC. IV BENZODIAZEPINE USE, THC USE. Smoking Status: Current Everyday Smoker Type Used: Cigarettes 2nd Hand Smoke Exposure: Yes Physical Abuse Screen: No Sexual Abuse: No Recent Foreign Travel: No Contact w/other who traveled: No Recent Hopitalizations: No Recent Infectious Disease Expo: No Immunizations Up To Date Tetanus Booster (TDap): Unknown Seasonal Allergies Seasonal Allergies: No Past Medical History Surgeries: Orthopedic Cardiac: Hypertension Psychosocial: Anxiety, Bipolar, Schizophrenia Family History Arthritis Cardiovascular disease Coronary thrombosis Diabetes mellitus Hypertension Myocardial infarction Psychosocial problem No Pertinent Family Hx Review of Systems Constitutional: see HPI, dizziness EENTM: no symptoms reported Respiratory: cough Cardiovascular: no symptoms reported Gastrointestinal: no symptoms reported Genitourinary: no symptoms reported Musculoskeletal: no symptoms reported Skin: no symptoms reported Psychiatric/Neurological: Depressed All Other Systems Reviewed Negative Unless Noted: Yes Physical Exam Physical Exam Vital Signs Vital Signs - First Documented 12/23/17 09:32 Temp 101.8 Pulse 134 Resp 22 B/P (MAP) 184/109 (134) Pulse Ox 98 O2 Delivery Room Air Capillary Refill : Less Than 3 Seconds Height, Weight, BMI Height: 6'0.00" Weight: 250lbs. 0.0oz. 113.265881ey; 33.9 BMI Method:Stated General Appearance: No Apparent Distress, WD/WN, Chronically ill Eyes: Bilateral Eye Normal Inspection, Bilateral Eye PERRL HEENT: PERRL/EOMI, TMs Normal, Normal ENT Inspection, Pharynx Normal Neck: Full Range of Motion, Normal Inspection, Non Tender, Supple, Carotid Bruit Respiratory: Chest Non Tender, Lungs Clear, Normal Breath Sounds, No Accessory Muscle Use, No Respiratory Distress Cardiovascular: Regular Rate, Rhythm, No Edema, No Gallop, No JVD, No Murmur, Normal Peripheral Pulses Gastrointestinal: Normal Bowel Sounds, No Organomegaly, No Pulsatile Mass, Non Tender, Soft Back: Normal Inspection, No CVA Tenderness, No Vertebral Tenderness Extremity: Normal Capillary Refill, Normal Inspection, Normal Range of Motion, Non Tender, No Calf Tenderness, No Pedal Edema Neurologic/Psychiatric: Alert, Oriented x3, No Motor/Sensory Deficits, Normal Mood/Affect Skin: Normal Color, Warm/Dry Lymphatic: No Adenopathy Results Results/Procedures Labs Laboratory Tests 12/23/17 10:09 12/24/17 05:20 Patient resulted labs reviewed. Short Stay Diagnosis Discharge Diagnosis-Short Stay Admission Diagnosis Methamphetamine psychosis Questionable infiltrate on chest x-ray Smoker Final Discharge Diagnosis Methamphetamine psychosis Questionable infiltrate on chest x-ray Smoker Conclusion Plan Plan: MI home Stop using drugs Diagnosis/Problems Diagnosis/Problems (1) Methamphetamine intoxication Status: Acute (2) Psychoses Status: Acute Qualifiers: Qualified Codes: F29 - Unspecified psychosis not due to a substance or known physiological condition (3) Infiltrate noted on imaging study Status: Acute (4) Smoker Status: Chronic Clinical Quality Measures DVT/VTE Risk/Contraindication: Risk Factor Score Per Nursin RFS Level Per Nursing on Admit: 3=High ANGELA HEALY DO Dec 24, 2017 10:46
[2017-12-24] MEDS ORDERED: CEFD300C3 PO (10:47)
[2017-12-24 12:00] VITALS: BP 152/84
[2017-12-24 15:56] VITALS: BP 162/93
[2017-12-24 16:55] VITALS: BP 158/88
[2017-12-25] MEDS ORDERED: meTOproloL SUCCINATE 50 MG (TOPROL XL) TAB PO SCH (09:00)
== END 2017-12-24 16:55 | disposition home or self-care (01) | DRG 897 ==
LOC: EDUNIT# 09:32 → ER 09:34 → 4TH 11:20
PROVIDERS: ADMIT Family Medicine; ATTEND Family Medicine
DX: F15.159 Other stimulant abuse with stimulant-induced psychotic disorder, unspecified (principal); N17.9 Acute kidney failure, unspecified; E87.6 Hypokalemia; R91.8 Other nonspecific abnormal finding of lung field; I10 Essential (primary) hypertension; F20.9 Schizophrenia, unspecified; F41.9 Anxiety disorder, unspecified; F31.9 Bipolar disorder, unspecified; F17.210 Nicotine dependence, cigarettes, uncomplicated
CPT/HCPCS: 36415; 71045; 71046; 80053; 83605; 84484; 85025; 85610; 85730; 87040; 93005; 96361; 96365; 96375; 96376